=== PATIENT | female | born 1945 | race Caucasian/White ===

== ENCOUNTER → 2018-07-25 | Day surgery (SDC) | payer OTHER ==
[2018-07-12 09:45] LABS: ABSOLUTE BASOPHILS 0.1 thou/uL (0.0-0.2); ABSOLUTE EOSINOPHILS 0.1 thou/uL (0.0-0.7); ABSOLUTE LYMPHOCYTES 1.9 thou/uL (0.8-5.3); ABSOLUTE MONOCYTES 0.5 thou/uL (0.0-1.2); ABSOLUTE NEUTROPHILS 3.5 thou/uL (1.6-8.1); HEMATOCRIT 39.5 % (37.0-47.0); HEMOGLOBIN 13.5 gm/dL (12.0-15.0); LYMPHOCYTES 30.8 %; MCH 28.9 pg (26.0-34.0); MCHC 34.1 g/dL (28.0-37.0); MCV 84.6 fL (80.0-100.0); MONOCYTES 7.5 %; MPV 7.4 fl. (7.2-11.1); NUCLEATED RBCS 0 /100WBC; PLATELET COUNT* 389 thou/uL (150-400); POLYS 57.7 %; RBC 4.67 mil/uL (4.20-5.00); RDW-CV 13.9 % (10.5-14.5)
[2018-07-12 10:12] LABS: CALCIUM 8.5 mg/dL (8.5-10.1); CREATININE 0.8 mg/dL (0.6-1.3); POTASSIUM 4.5 mmol/L (3.5-5.1)
--- NOTE | 2018-07-12 17:24 | EKG ---
[place] [address] ELECTROCARDIOGRAM REPORT Name: ROSALINDA VINES Room: [facility].#: [id number] Admission: Attend Phys: Castro England Discharge: Date of : 45 Report #: [id number] THIS REPORT FOR: //name// [facility] Test Date: 2018-07-12 Test Time: 09:30:37 Pat Name: ROSALINDA VINES Department: Room: Gender: F Group Home Manager: : 1945 Requested By: Maxim Mccord Order Number: [id number] Reading MD: Brent Landa Measurements Intervals [place] Rate: 97 P: 77 [place]: 194 QRS: 37 QRSD: 86 T: 30 QT: 360 QTc: 458 Interpretive Statements Sinus rhythm Abnormal R-wave progression, early transition Inferior infarct, old possible Electronically Signed On 07-12-2018 17:24:05 CDT by Brent Landa [email or web address] <ELECTRONICALLY SIGNED> By: Brent Landa MD, [facility] 07/12/18 1724 0930 0930 Brent Landa MD, FACC /EPI
[~2018-07-25] MED LIST: ADVAIR 250-501 EACH INH; ALBUTEROL SULFAT2 MG; ALBUTEROL SULFAT4 MG PO; ALPRAZOLAM 0.50.5 M1 PO; AMBIEN 10 MG TA10 MG; AMBIEN 10 MG TA10 MG PO; ASPIRIN EC81 M1 PO; BIAXIN 250MG T250 M1 PO; BIAXIN 250MG T250 MG PO; BUSPIRONE HCL15 MG PO; CELEBREX 200 M200 M1 PO; CELEBREX 200 M200 MG PO; CIPRO250 M1 PO; COLACE100 MG PO; HYDROCODON-ACE1 EAC7 PO; HYLAND PO; IRBESARTAN150 MG PO; NEXIUM40 MG PO; PAXIL10 MG PO; PRINIVIL10 MG PO; PROAIR HFA8.5 GM INH; SINGULAIR 10 MG10 M1 PO; SPIRIVA INH; SYMBICORT160 MCG/4. INH; VITAMIN D 5050000 I1 PO
--- NOTE | 2018-09-01 16:32 | OP ---
[facility] [address] [place] [address] OPERATIVE REPORT Name: ROSALINDA VINES Room: [facility] M..#: [id number] Admission: 07/25/18 Attend Phys: Castro England Discharge: Date of : 45 Report #: [id number] THIS REPORT FOR: //name// CC: Christy Mccord SURGEON: Maxim Mccord M.D. PREOPERATIVE DIAGNOSIS: Stress urinary incontinence. POSTOPERATIVE DIAGNOSIS: Stress urinary incontinence. PROCEDURE: Solyx sling and cystoscopy. COMPLICATIONS: No complication. INDICATIONS: This is a 73-year-old female with a history of leakage with coughing, sneezing, lifting and laughing. She has gotten okayed by her lung doctor to proceed with surgery. She understands the risks of bleeding, infection and need for another procedure. She understands she still may have recurrent incontinence and may have sphincter insufficiency and/or need medications. She understands the risks of bleeding, infection, erosion or rejection and wishes to proceed. DESCRIPTION OF PROCEDURE: Informed consent was obtained. The patient was sterilely prepped and draped in dorsal lithotomy position and given preoperative antibiotics, very carefully sterilely prepped and draped. Marcaine was first infiltrated in the suburethral area. She did have some scarring. It looked like probably an old episiotomy, mainly on her right side with the scarring. I was able to get though good planes established and periurethral pockets were made up to the level of the obturator muscle membrane. Solyx sling device then was soaked in antibiotic irrigation and then it was placed in the proper position to the level of the mid urethra on the ansley of the trocar. The ends were deployed into the muscle. I gave some gentle traction. They were well seated and did not pull back at all. Copious antibiotic irrigation was then used in the wound and then the incision was closed using a 2-0 Vicryl. Hemostasis was excellent. Cystoscopy was then carried out, showing no evidence of inadvertent entry into the bladder and the mid urethral area was in the perfect neutral position. The patient tolerated this well and was taken to the recovery room in good condition. She will have a voiding trial in the recovery room. <ELECTRONICALLY SIGNED> By: Maxim Mccord MD 09/01/18 1632 0829 [email or web address] Mccord MD /nt
== END | disposition home or self-care (01) ==
LOC: M.SUR 05:54
PROVIDERS: Urology
DX: N39.3 Stress incontinence (female) (male) (principal); I10 Essential (primary) hypertension; F17.200 Nicotine dependence, unspecified, uncomplicated; K21.9 Gastro-esophageal reflux disease without esophagitis; F32.9 Major depressive disorder, single episode, unspecified; E66.9 Obesity, unspecified; J45.909 Unspecified asthma, uncomplicated; J44.9 Chronic obstructive pulmonary disease, unspecified; Z88.0 Allergy status to penicillin; Z88.1 Allergy status to other antibiotic agents; Z79.899 Other long term (current) drug therapy; Z90.710 Acquired absence of both cervix and uterus; Z98.890 Other specified postprocedural states; Z96.643 Presence of artificial hip joint, bilateral

== ENCOUNTER → 2019-05-29 | Outpatient (CLI) | payer OTHER ==
[~2019-05-29] MED LIST changes: +ACETAMINOPHEN-1 EAC1 PO; +KEFLEX500 M1 PO; +RANITIDINE 150150 M1 PO
== END ==
LOC: M.ULTRA 12:43
DX: I82.492 Acute embolism and thrombosis of other specified deep vein of left lower extremity (principal); M79.601 Pain in right arm

== ENCOUNTER 2021-10-29 01:12 | Inpatient (IN) | payer OTHER ==
[~2021-10-29] VITALS: Ht 167.6 cm; Wt 79.8 kg
--- NOTE | ~2021-10-29 | EMS ---
[address] [place] [address] EMS Patient Care Report Name: ROSALINDA VINES Room: [place] [address] ADM IN [facility].#: [id number] Admission: 10/29/21 Attend Phys: Len Currie MD Discharge: Date of : 45 Report #: [id number] THIS REPORT FOR: //name// Report Transmitted: 10/29/2021 07:38 EMS Care Summary [place] [facility] Incident 22-0022 @ 10/29/2021 00:30 Incident Location [address] [place] [address] Patient ROSALINDA VINES Female, 76 Years 1945 Patient Address [address] [place] [address] Patient History Chronic Obstructive Pulmonary Disease (COPD), Patient Allergies Amoxicillin, Chief Complaint Short of breath Disposition Transported No Lights/[place] Dispatch Reason Breathing Problem Transported To [facility] was dispatched for a 76 year old female with difficulty breathing. Upon our arrival, patient was sitting in a kitchen chair. Pt was wearing home oxygen with nasal canula at 2LPM. Pt was obviously having difficulty breathing and could hear wheezing and crackles, as we walked in the door. Pt said she has sounded like this for 2 days and tonight had gotten worse. He said that the patient has home breathing treatments but [address] [place] [address] EMS Patient Care Report Name: ROSALINDA VINES Room: [place] [address] ADM [place] ..#: [id number] Admission: 10/29/21 Attend Phys: Len Currie MD Discharge: Date of : 45 Report #: [id number] refuses to take them. states that she has COPD and other conditions that he can not remember. He also did not have a list of meds, nor did he know what her meds were or where they were at. Pt was A&O x4. Pt stated that she smokes approx a pack and a half of cigarettes a day. Pt sats were 80% on 2LPM NC. She was placed on a non rebreather 15LPM, sats went up to 94-95%. Patient was positioned on the stretcher and placed into the ambulance. Vitals were obtained at the house and monitored in the ambulance. Pt denied any chest pain or had any other complaints. Pt remained sitting upright on the stretcher and was monitored during transport. Initial Vitals @00:47P: 151,R: 24,BP: 99/57,SpO2: 95, @00:39P: 114,R: 26,BP: 110/68,GCS: 15,Glucose: 95,SpO2: 80,Revised Trauma: 12, Impression Chronic Obstructive Pulmonary Disease (COPD) Timeline 00:30,Call Received 00:30,Dispatched 00:31,En Route 00:39,Initial Responder On Scene 00:39,On Scene 00:39,At Patient 00:39,BP: 110/68 M,PULSE: 114,RR: 26 R,SPO2: 80 Ox,ETCO2: ,B,PAIN: ,GCS: 15, 00:47,BP: 99/57 M,PULSE: 151,RR: 24 R,SPO2: 95 Ox,ETCO2: ,BG: ,PAIN: ,GCS: , 00:50,Depart Scene 01:10,At Destination 01:10,Transfer Patient 01:36,Call Closed 01:36,In District Disclaimer v1.1 Copyright 2021 [employer] This EMS Care Summary contains data elements from the applicable legal record (which may be displayed differently). It is designed to provide pertinent information for the following purposes: continuity of care, clinical quality, and state data reporting. The complete legal record is available to ED staff and administrators of the receiving hospital in [email or web address]'s Patient Tracker. All data is provided "as is."
--- NOTE | ~2021-10-29 | EMS ---
[address] [address] EMS Patient Care Report Name: ROSALINDA VINES Room: [place] [address] ADM [place] ..#: [id number] Admission: 10/29/21 Attend Phys: Len Currie MD Discharge: Date of : 45 Report #: [id number] THIS REPORT FOR: //name// Report Transmitted: 10/30/2021 10:22 EMS Care Summary [place] [facility] Incident 22-0022 @ 10/29/2021 00:30 Incident Location [address] [place] [address] Patient ROSALINDA VINES Female, 76 Years 1945 Patient Address [address] [place] [address] Patient History Chronic Obstructive Pulmonary Disease (COPD), Patient Allergies Amoxicillin, Chief Complaint Short of breath Disposition Transported No Lights/[place] Dispatch Reason Breathing Problem Transported To [facility] was dispatched for a 76 year old female with difficulty breathing. Upon our arrival, patient was sitting in a kitchen chair. Pt was wearing home oxygen with nasal canula at 2LPM. Pt was obviously having difficulty breathing and could hear wheezing and crackles, as we walked in the door. Pt said she has sounded like this for 2 days and tonight had gotten worse. He said that the patient has home breathing treatments [place] [address] [place] [address] EMS Patient Care Report Name: ROSALINDA VINES Room: [place] [address] ADM IN [facility].#: [id number] Admission: 10/29/21 Attend Phys: Len Currie MD Discharge: Date of : 45 Report #: [id number] refuses to take them. states that she has COPD and other conditions that he can not remember. He also did not have a list of meds, nor did he know what her meds were or where they were at. Pt was A&O x4. Pt stated that she smokes approx a pack and a half of cigarettes a day. Pt sats were 80% on 2LPM NC. She was placed on a non rebreather 15LPM, sats went up to 94-95%. Patient was positioned on the stretcher and placed into the ambulance. Vitals were obtained at the house and monitored in the ambulance. Pt denied any chest pain or had any other complaints. Pt remained sitting upright on the stretcher and was monitored during transport. Initial Vitals @00:47P: 151,R: 24,BP: 99/57,SpO2: 95, @00:39P: 114,R: 26,BP: 110/68,GCS: 15,Glucose: 95,SpO2: 80,Revised Trauma: 12, Impression Chronic Obstructive Pulmonary Disease (COPD) Timeline 00:30,Call Received 00:30,Dispatched 00:31,En Route 00:39,Initial Responder On Scene 00:39,On Scene 00:39,At Patient 00:39,BP: 110/68 M,PULSE: 114,RR: 26 R,SPO2: 80 Ox,ETCO2: ,B,PAIN: ,GCS: 15, 00:47,BP: 99/57 M,PULSE: 151,RR: 24 R,SPO2: 95 Ox,ETCO2: ,BG: ,PAIN: ,GCS: , 00:50,Depart Scene 01:10,At Destination 01:10,Transfer Patient 01:36,Call Closed 01:36,In District Disclaimer v1.1 Copyright 2021 [employer] This EMS Care Summary contains data elements from the applicable legal record (which may be displayed differently). It is designed to provide pertinent information for the following purposes: continuity of care, clinical quality, and state data reporting. The complete legal record is available to ED staff and administrators of the receiving hospital in ES's Patient Tracker. All data is provided "as is."
[2021-10-29 01:46] LABS: HEMATOCRIT 37.1 % (37.0-47.0); HEMOGLOBIN 12.6 gm/dL (12.0-15.0); MCH 26.7 pg (26.0-34.0); MCHC 34.1 g/dL (28.0-37.0); MCV 78.4 fL (80.0-100.0); NUCLEATED RBCS 0 /100WBC; PLATELET COUNT* 358 thou/uL (150-400); RBC 4.73 mil/uL (4.20-5.00); RDW-CV 15.8 % (10.5-14.5); WBC 23.2 thou/uL (4.0-11.0)
[2021-10-29 01:47] LABS: BE -6.6 mmol/L (-2 to +3); PCO2 46.8 mmHg (35.0-45.0); PO2 82.9 mmHg (75.0-100.0)
[2021-10-29 01:49] LABS: pH 7.258 (7.340-7.450)
[2021-10-29 01:52] LABS: CALCIUM 8.2 mg/dL (8.5-10.1); CREATININE 1.8 mg/dL (0.6-1.3); POTASSIUM 3.9 mmol/L (3.5-5.1)
[2021-10-29 02:02] LABS: ALBUMIN 2.7 g/dL (3.4-5.0); MAGNESIUM 1.5 mg/dL (1.8-2.4); TOTAL BILIRUBIN 1.4 mg/dL (<0.1-1.0); TOTAL PROTEIN 6.9 g/dL (6.4-8.2)
[2021-10-29 02:36] LABS: INFLUENZA A ANTIGEN Negative (Negative); INFLUENZA B ANTIGEN Negative (Negative)
[2021-10-29 03:37] LABS: ABSOLUTE LYMPHOCYTES 0.7 thou/uL (0.8-5.3); ABSOLUTE MONOCYTES 0.5 thou/uL (0.0-1.2); TOXIC GRANULATION 2+
[2021-10-29 03:38] LABS: PLATELET ESTIMATE ADEQUATE
[2021-10-29 06:15] VITALS: BP 155/55
[2021-10-29 09:15] LABS: CREATININE 1.8 mg/dL (0.6-1.3); POTASSIUM 3.6 mmol/L (3.5-5.1)
[2021-10-29 10:15] VITALS: BP 120/64
[2021-10-29 10:36] LABS: URINE BILIRUBIN NEGATIVE (Negative); URINE BLOOD 3+ (Negative); URINE CLARITY CLEAR; URINE COLOR DARK YELLOW; URINE GLUCOSE-RANDOM NEGATIVE (Negative); URINE KETONES NEGATIVE (Negative); URINE LEUKOCYTES-REFLEX TRACE (Negative); URINE NITRITE-REFLEX NEGATIVE (Negative); URINE PROTEIN NEGATIVE (Negative); URINE UROBILINOGEN 0.2 E.U./dl (0.2-1.0)
[2021-10-29 10:45] LABS: BE -3.3 mmol/L (-2 to +3); PCO2 40.7 mmHg (35.0-45.0); PO2 111.8 mmHg (75.0-100.0); pH 7.351 (7.340-7.450)
[2021-10-29 10:49] LABS: BACTERIA-REFLEX 1-9 Few /HPF (None Seen); CASTS None Seen /LPF (None Seen); CRYSTALS None Seen /LPF (None Seen); SQUAMOUS 4-10 Moderate /LPF (0-3); URINE WBC-REFLEX 0-5 Rare /HPF (0-5)
--- NOTE | 2021-10-29 12:37 | 2DMMODE ---
[place] [address] 2 D/M-MODE ECHOCARDIOGRAM Name: ROSALINDA VINES Room: [address] IN [facility].#: [id number] Admission: 10/29/21 Attend Phys: Len Currie, Discharge: Date of : 45 Date of Service: 10/29/21 1237 Report #: [id number] THIS REPORT FOR: cc: Christy Wood Ahmad W. DO Liston, Michael J. MD [facility] ~ APPROVED REPORT Study performed: 10/29/2021 10:15:33 EXAM: Comprehensive 2D, Doppler, and color-flow Echocardiogram Patient Location: Bedside BSA: 1.89 HR: 137 bpm BP: 155/55 mmHg Other Information Study Quality: Adequate Technically limited study due to uncooperative patient, inability to position patient. Indications Atrial Fibrillation 2D Dimensions IVSd: 13.08 (7-11mm) LVOT Diam: 19.39 (18-24mm) LVDd: 43.06 mm PWd: 12.33 (7-11mm) Ascending Ao: 28.16 (22-36mm) LVDs: 27.55 (25-40mm) Aortic Root: 28.03 mm Volumes Left Atrial Volume (Systole) LA ESV Index: 23.30 mL/m2 Aortic Valve AoV Peak Chris.: 1.05 m/s AO Peak Gr.: 4.38 mmHg LVOT Max P.56 mmHg AO Mean Gr.: 2.49 mmHg LVOT Mean P.44 mmHg LVOT Max V: 0.80 m/s AO V2 VTI: 13.69 cm LVOT Mean V: 0.56 m/s JIMMY (VTI): 2.97 cm2 LVOT V1 VTI: 13.77 [place] [address] 2 D/M-MODE ECHOCARDIOGRAM Name: ROSALINDA VINES Room: [address] IN [facility].#: [id number] Admission: 10/29/21 Attend Phys: Len Currie, Discharge: Date of : 45 Date of Service: 10/29/21 1237 Report #: [id number] Mitral Valve E/A Ratio: 5.11 MV Decel. Time: 165.76 ms MV E Max Chris.: 1.09 m/s MV PHT: 48.07 ms MVA (PHT): 4.58 cm2 TDI E/Lateral E': 7.79 E/Medial E': 9.08 Medial E' Chris.: 0.12 m/s Lateral E' Chris.: 0.14 m/s Pulmonary Valve PV Peak Chris.: 0.74 m/s PV Peak Gr.: 2.22 mmHg Tricuspid Valve RAP Estimate: 15.00 mmHg TR Peak Gr.: 22.07 mmHg RVSP: 37.07 mmHg PA Pressure: 37.07 mmHg Left Ventricle The left ventricle is normal size. There are no obvious wall motion abnormalities. Mild concentric left ventricular hypertrophy. Left ventricular systolic function is grossly normal. LVEF is 55-60%. This study is not technically sufficient to allow evaluation of the LV diastolic function due to atrial fibrillation. Right Ventricle Right ventricle is mildly dilated. The right ventricular systolic function is normal. Atria The left atrium size is normal. The right atrium size is normal. Aortic Valve The aortic valve is normal in structure. No aortic regurgitation is present. There is no aortic valvular stenosis. Mitral Valve The mitral valve is normal in structure. There is no mitral valve regurgitation noted. No evidence of mitral valve stenosis. Tricuspid Valve The tricuspid valve is normal in structure. Mild tricuspid regurgitation. No apparent [place] [address] 2 D/M-MODE ECHOCARDIOGRAM Name: ROSALINDA VINES Room: [address] IN [facility]#: [id number] Admission: 10/29/21 Attend Phys: Len Currie, Discharge: Date of : 45 Date of Service: 10/29/21 1237 Report #: [id number] Pulmonic Valve Pulmonic valve is not well visualized. Trace pulmonic regurgitation. Great Vessels The aortic root is normal in size. IVC is dilated and collapses >50% with inspiration. Pericardium There is no pericardial effusion. <Conclusion> Technically limited two-dimensional echocardiogram. The left ventricle is normal size. Mild concentric left ventricular hypertrophy. Left ventricular systolic function is grossly normal. LVEF is 55-60%. There are no obvious wall motion abnormalities. Right ventricle is mildly dilated. Mild tricuspid regurgitation. No apparent pulmonary hypertension. IVC is dilated and collapses >50% with inspiration. <ELECTRONICALLY SIGNED> By: Demetrio Chase MD, FACC 10/29/21 1237 1237 1237 Demetrio Chase MD, FACC /INF
[2021-10-29 14:03] VITALS: BP 121/71
[2021-10-29 16:31] LABS: CALCIUM 7.7 mg/dL (8.5-10.1); CREATININE 1.9 mg/dL (0.6-1.3); POTASSIUM 3.9 mmol/L (3.5-5.1)
[2021-10-29 18:06] VITALS: BP 133/71
[2021-10-29 21:19] VITALS: BP 116/60
[2021-10-30] VITALS (8 sets, daily range): BP systolic 102–124; BP diastolic 53–71
[2021-10-30 08:05] LABS: ABSOLUTE EOSINOPHILS 0.3 thou/uL (0.0-0.7); ABSOLUTE LYMPHOCYTES 0.3 thou/uL (0.8-5.3); ABSOLUTE MONOCYTES 0.6 thou/uL (0.0-1.2); ABSOLUTE NEUTROPHILS 24.4 thou/uL (1.6-8.1); BASOPHILS 0.1 %; EOSINOPHILS 1.1 %; HEMATOCRIT 32.8 % (37.0-47.0); HEMOGLOBIN 10.8 gm/dL (12.0-15.0); LYMPHOCYTES 1.3 %; MCH 26.5 pg (26.0-34.0); MCHC 32.9 g/dL (28.0-37.0); MCV 80.6 fL (80.0-100.0); MONOCYTES 2.3 %; MPV 7.8 fl. (7.2-11.1); NUCLEATED RBCS 0 /100WBC; PLATELET COUNT* 319 thou/uL (150-400); POLYS 95.2 %; RBC 4.07 mil/uL (4.20-5.00); RDW-CV 15.9 % (10.5-14.5); WBC 25.7 thou/uL (4.0-11.0)
[2021-10-30 08:20] LABS: ALBUMIN 2.2 g/dL (3.4-5.0); CALCIUM 7.5 mg/dL (8.5-10.1); MAGNESIUM 2.8 mg/dL (1.8-2.4); TOTAL BILIRUBIN 0.8 mg/dL (<0.1-1.0); TOTAL PROTEIN 6.6 g/dL (6.4-8.2)
[2021-10-30 08:49] LABS: BE -4.9 mmol/L (-2 to +3); PCO2 40.6 mmHg (35.0-45.0); PO2 108.4 mmHg (75.0-100.0); pH 7.327 (7.340-7.450)
[2021-10-31 04:00] VITALS: BP 126/65
[2021-10-31 05:39] LABS: ABSOLUTE EOSINOPHILS 0.1 thou/uL (0.0-0.7); ABSOLUTE LYMPHOCYTES 0.2 thou/uL (0.8-5.3); ABSOLUTE MONOCYTES 0.7 thou/uL (0.0-1.2); BASOPHILS 0.1 %; EOSINOPHILS 0.4 %; HEMOGLOBIN 10.8 gm/dL (12.0-15.0); MCH 26.6 pg (26.0-34.0); MCHC 32.6 g/dL (28.0-37.0); MCV 81.5 fL (80.0-100.0); MONOCYTES 3.4 %; NUCLEATED RBCS 0 /100WBC; PLATELET COUNT* 282 thou/uL (150-400); POLYS 95.1 %; RBC 4.05 mil/uL (4.20-5.00); RDW-CV 16.2 % (10.5-14.5); WBC 22.1 thou/uL (4.0-11.0)
[2021-10-31 06:00] LABS: CALCIUM 7.9 mg/dL (8.5-10.1); CREATININE 1.7 mg/dL (0.6-1.3); MAGNESIUM 3.2 mg/dL (1.8-2.4); POTASSIUM 3.6 mmol/L (3.5-5.1)
[2021-10-31 10:10] VITALS: BP 122/66
--- NOTE | 2021-10-31 10:54 | EKG ---
[place] [address] ELECTROCARDIOGRAM REPORT Name: ROSALINDA VINES Room: [address] ADM IN .R.#: [id number] Admission: 10/29/21 Attend Phys: Len Currie, Discharge: Date of : 45 Date of Service: 10/29/21 0121 Report #: [id number] THIS REPORT FOR: //name// [facility] ED Test Date: 2021-10-29 Test Time: 01:21:59 Pat Name: ROSALINDA VINES Department: Room: [facility] Gender: F Frame Feeder: : 1945 Requested By: Len Currie Order Number: [id number] MD: Mario Keita Measurements Intervals [place] Rate: 173 P: [place]: QRS: 59 QRSD: 89 T: 33 QT: 266 QTc: 452 Interpretive Statements Atrial fibrillation with rapid V-rate wandering baseline Low voltage, extremity and precordial leads ST depression, probably rate related Compared to ECG 07/12/2018 09:30:37 Low QRS voltage now present ST (T wave) deviation now present Sinus rhythm no longer present Electronically Signed On 10-31-2021 10:53:58 DETONATOR ASSEMBLER by Mario Keita [email or web address] <ELECTRONICALLY SIGNED> By: Mario Keita MD, [facility] 10/31/21 1053 0 012 Mario Keita MD, [facility] /EPI
--- NOTE | 2021-10-31 11:00 | EKG ---
[place] [address] ELECTROCARDIOGRAM REPORT Name: ROSALINDA VINES Room: [address] ADM IN M.R.#: [id number] Admission: 10/29/21 Attend Phys: Len Currie, Discharge: Date of : 45 Date of Service: 10/31/21 1001 Report #: [id number] THIS REPORT FOR: //name// [facility] Test Date: 2021-10-31 Test Time: 10:01:02 Pat Name: ROSALINDA VINES Department: Room: [address] Gender: F Contractor Field Hauling: SANTI : 1945 Requested By: Trudi Foster Order Number: [id number] Chace MD: Mario Keita Measurements Intervals [place] Rate: 111 P: MD: QRS: 45 QRSD: 79 T: 31 QT: 316 QTc: 430 Interpretive Statements Atrial fibrillation Low voltage, precordial leads Abnormal R-wave progression, early transition Compared to ECG 10/29/2021 01:21:59 rate has slowed Electronically Signed On 10-31-2021 11:00:16 MANAGER PMO by Mario Keita [email or web address] <ELECTRONICALLY SIGNED> By: Mario Keita MD, FAC 10/31/21 1100 1001 1001 Mario Keita MD, [facility] /EPI
[2021-10-31 11:13] VITALS: BP 135/51
[2021-10-31 17:10] VITALS: BP 128/88
[2021-10-31 17:15] LABS: BE -1.9 mmol/L (-2 to +3); PCO2 49.4 mmHg (35.0-45.0); PO2 73.3 mmHg (75.0-100.0); pH 7.315 (7.340-7.450)
[2021-10-31 20:00] VITALS: BP 149/63
[2021-11-01 00:24] VITALS: BP 129/65
[2021-11-01 04:00] VITALS: BP 133/63
[2021-11-01 05:51] LABS: HEMATOCRIT 34.2 % (37.0-47.0); HEMOGLOBIN 11.1 gm/dL (12.0-15.0); MCH 26.5 pg (26.0-34.0); MCHC 32.6 g/dL (28.0-37.0); MCV 81.1 fL (80.0-100.0); MPV 7.9 fl. (7.2-11.1); RBC 4.21 mil/uL (4.20-5.00); RDW-CV 16.8 % (10.5-14.5); WBC 20.9 thou/uL (4.0-11.0)
[2021-11-01 06:21] LABS: CALCIUM 7.9 mg/dL (8.5-10.1); CREATININE 1.4 mg/dL (0.6-1.3); MAGNESIUM 3.7 mg/dL (1.8-2.4); POTASSIUM 3.6 mmol/L (3.5-5.1); TOTAL BILIRUBIN 0.4 mg/dL (<0.1-1.0); TOTAL PROTEIN 6.7 g/dL (6.4-8.2)
[2021-11-01 08:30] VITALS: BP 140/62
[2021-11-01 11:57] VITALS: BP 138/69
[2021-11-01 17:08] VITALS: BP 133/66
[2021-11-01 20:00] VITALS: BP 142/64
[2021-11-02] VITALS: BP 127/58
[2021-11-02 04:00] VITALS: BP 122/64
[2021-11-02 04:22] LABS: HEMATOCRIT 34.6 % (37.0-47.0); HEMOGLOBIN 11.2 gm/dL (12.0-15.0); MCH 26.3 pg (26.0-34.0); MCHC 32.4 g/dL (28.0-37.0); MPV 7.9 fl. (7.2-11.1); RBC 4.27 mil/uL (4.20-5.00); RDW-CV 16.8 % (10.5-14.5); WBC 14.2 thou/uL (4.0-11.0)
[2021-11-02 04:46] LABS: ALBUMIN 1.9 g/dL (3.4-5.0); CALCIUM 7.9 mg/dL (8.5-10.1); CREATININE 1.3 mg/dL (0.6-1.3); MAGNESIUM 3.5 mg/dL (1.8-2.4); POTASSIUM 3.9 mmol/L (3.5-5.1); TOTAL BILIRUBIN 0.4 mg/dL (<0.1-1.0); TOTAL PROTEIN 6.3 g/dL (6.4-8.2)
[2021-11-02 08:30] VITALS: BP 131/73
[2021-11-02 11:49] VITALS: BP 166/98
[2021-11-02 16:00] VITALS: BP 154/73
[2021-11-02 20:00] VITALS: BP 167/66
[2021-11-02 23:07] LABS: MYCOPLASMA PNEUMONIA IgG 352 U/mL (0-99); MYCOPLASMA PNEUMONIA IgM <770 U/mL (0-769)
[2021-11-03] VITALS (8 sets, daily range): BP systolic 123–162; BP diastolic 52–88
[2021-11-04 01:58] VITALS: BP 149/51
[2021-11-04 05:16] LABS: ALBUMIN 2.2 g/dL (3.4-5.0); CALCIUM 8.2 mg/dL (8.5-10.1); CREATININE 1.1 mg/dL (0.6-1.3); MAGNESIUM 2.9 mg/dL (1.8-2.4); TOTAL BILIRUBIN 0.6 mg/dL (<0.1-1.0); TOTAL PROTEIN 5.9 g/dL (6.4-8.2)
[2021-11-04 06:28] LABS: HEMATOCRIT 34.4 % (37.0-47.0); HEMOGLOBIN 11.1 gm/dL (12.0-15.0); MCH 26.3 pg (26.0-34.0); MCHC 32.4 g/dL (28.0-37.0); MCV 81.1 fL (80.0-100.0); MPV 7.6 fl. (7.2-11.1); NUCLEATED RBCS 0 /100WBC; PLATELET COUNT* 273 thou/uL (150-400); RBC 4.24 mil/uL (4.20-5.00); RDW-CV 16.5 % (10.5-14.5); WBC 19.9 thou/uL (4.0-11.0)
[2021-11-04 06:33] VITALS: BP 162/66
[2021-11-04 08:08] LABS: ABSOLUTE LYMPHOCYTES 0.8 thou/uL (0.8-5.3); ABSOLUTE MONOCYTES 0.4 thou/uL (0.0-1.2); ABSOLUTE NEUTROPHILS 18.7 thou/uL (1.6-8.1); MYELOCYTES 3 %; PLATELET ESTIMATE ADEQUATE
[2021-11-04 08:47] VITALS: BP 155/62
[2021-11-04 12:14] VITALS: BP 144/63
[2021-11-04 13:34] LABS: BE 1.3 mmol/L (-2 to +3); PCO2 44.8 mmHg (35.0-45.0); PO2 75.4 mmHg (75.0-100.0); pH 7.392 (7.340-7.450)
[2021-11-04 17:34] VITALS: BP 142/66
[2021-11-04 20:00] VITALS: BP 154/63
[2021-11-05] VITALS (8 sets, daily range): BP systolic 108–159; BP diastolic 52–71
[2021-11-05] MEDS ORDERED: CARDIZEM CD240 M1 PO (11:53)
[2021-11-05] MEDS ORDERED: PREDNISONE 10 M10 MG PO (11:53)
[2021-11-05] MEDS ORDERED: MUCINEX600 MG PO (11:53)
[2021-11-05] MEDS ORDERED: PACERONE 200 M200 M1 PO (11:53)
[2021-11-05] MEDS ORDERED: APAP W/CODEINE1 TA2 PO (11:53)
[2021-11-05] MEDS ORDERED: ELIQUIS5 MG PO (17:07)
[2021-11-05] MEDS ORDERED: LEVOFLOXACIN750 MG PO (17:25)
--- NOTE | 2021-11-09 18:57 | CON ---
[address] [address] CONSULTATION Name: ROSALINDA VINES Room: [address] IN M.R.#: [id number] Admission: 10/29/21 Attend Phys: Len Currie MD Discharge: 11/05/21 Date of : 45 Report #: [id number] THIS REPORT FOR: cc: Christy Wood Ahmad W. DO Pervez, Adeel MD ~ DATE OF CONSULTATION: 10/29/2021 Consult has been requested by Dr. Schwartz. INDICATION FOR CONSULTATION: Acute hypoxemic respiratory failure/pneumonia. HISTORY OF PRESENT ILLNESS: This is a 76 years old female, past medical history includes a history of COPD. The patient is not on supplemental oxygen at home. It is not known to me as to whether she has been vaccinated for COVID-19. Her baseline creatinine is normal at 0.8. The patient has had chronic hyponatremia. There is previous sodium that is recorded up to 108, not known to me as to whether this has been previously evaluated. The patient has now presented with respiratory distress. She is on a BiPAP with 90% FiO2 during my evaluation earlier today, and she was not able to provide any meaningful history. She is on 90% FiO2 with a BiPAP in place; however, O2 saturation had come up to the high 90s. She appeared to be comfortable on BiPAP at that time, but per the records, she has had significant atrial fibrillation with RVR earlier and has been on amiodarone drip in addition to receiving digoxin and diltiazem. The patient is not able to provide further history or review of systems. PAST MEDICAL HISTORY: COPD, bronchial asthma is also mentioned in the chart, however, history is more consistent with COPD, previous history of hyponatremia, sodium is up to 108, creatinine previously normal at 0.8, hip surgery, foot surgery, finger surgery, back surgery, hysterectomy, bunionectomy, hypertension, bilateral hip replacement. SOCIAL HISTORY: Active smoker, unable to quantify exactly. Previous use of alcohol, unable to quantify. FAMILY HISTORY: No pertinent family history. ALLERGIES: SHE REPORTS ALLERGY TO PENICILLINS; however, she tolerates cephalosporins as well as carbapenem-type antibiotics without problems. ALSO ALLERGY TO CERTAIN MOLDS AND POLLEN. PHYSICAL EXAMINATION: GENERAL: She was drowsy, fully arousable, BiPAP at 90% FiO2[place] [address] CONSULTATION Name: ROSALINDA VINES Room: [address] IN [facility]#: [id number] Admission: 10/29/21 Attend Phys: Len Currie MD Discharge: 11/05/21 Date of : 45 Report #: [id number] record. These are reviewed. NECK: Does not show raised JVP. CHEST: Breath sounds are bilaterally equal. No added sounds. HEART: Irregular. No murmur. ABDOMEN: Soft and nontender. EXTREMITIES: Lower extremities, no edema, no calf tenderness. NEUROLOGIC: Nonfocal. LABORATORY DATA: Chest x-ray from earlier today is reviewed and shows florid pulmonary infiltrates, the entire right upper lobe is consolidated, some infiltrates extend into the right middle lobe and lower lobe. Lab work in [facility] reviewed. She is in acute renal failure. ASSESSMENT AND PLAN: 1. Acute hypoxemic respiratory failure. I feel that it is reasonable to follow her on a BiPAP at this time; however, if she fails to improve, then she may need to be intubated. Recommend obtaining a PICC line. 2. Severe bacterial pneumonia/pulmonary infiltrates. There are florid pulmonary infiltrates on the patient's chest x-ray, this is consistent with severe bacterial pneumonia. Findings are not consistent with COVID-19 or it will be entirely possible that she has COVID as well on top of having bacterial pneumonia. She is high risk for vancomycin nephrotoxicity. Therefore, I discontinued vancomycin and started linezolid instead. She is on Paxil as well as BuSpar at home long-term. I discontinued Paxil for the duration that she will be on linezolid. We will continue with meropenem. I increased the dose to 1 g q. 12 hours. Considering significant hyponatremia, I considered as to whether I should give her atypical coverage as well at this time. I, in fact, was going to order Levaquin as well; however, it was noted that she is on amiodarone, which will interact with Levaquin. I decided to hold off tonight. If she is not better, then I suggest reviewing this with the ID service. More cultures and serologies are ordered. 3. Chronic obstructive pulmonary disease exacerbation. Continue Brovana. Continue Solu-Medrol. If her respiratory status improves, then we will switch to Xopenex p.r.n. 4. Acute renal failure/hyponatremia. Note that she has had significant hyponatremia in the past as well. It is not known to me as to whether this has been investigated. I therefore will go ahead and start her on low rate IV fluids. I started the normal saline at 50 an hour. If her creatinine remains stable or decreases, then we can give her Lasix at the same time as continuing with IV fluids. However, if the creatinine rises, then in that case, rather than giving her Lasix, we will consider endotracheal intubation to maintain her respiratory status. Her hyponatremia is chronic, not known to me as to whether this has previously been investigated. Note that the patient takes an ARB at home, which can cause hyponatremia. Recommend [place] [address] CONSULTATION Name: ROSALINDA VINES Room: [address] IN .R.#: [id number] Admission: 10/29/21 Attend Phys: Len Currie MD Discharge: 11/05/21 Date of : 45 Report #: [id number] well. 5. Atrial fibrillation with rapid ventricular response. Echocardiogram noted shows normal left ventricular ejection fraction and pulmonary artery systolic of 37. I would defer management of atrial fibrillation to the Cardiology Service. She is in acute renal failure. Therefore, I recommend discontinuing Xarelto. If the patient is able to take oral anticoagulation, then I recommend that we give her Eliquis instead, may need parenteral anticoagulation in case she is unable to take orally. 6. Hypomagnesemia. Magnesium was 1.5 this morning. She did receive 2 g of magnesium. I do not have a repeat level available at this time. Leaving the magnesium level too low will be a greater risk than high magnesium level. Therefore, I went ahead and ordered 2 g of magnesium sulfate again now. Check morning labs. She may need some potassium as well. 7. Deep vein thrombosis prophylaxis. See discussion regarding choice of agent for anticoagulation as above. 8. Gastrointestinal prophylaxis. She takes a PPI at home. She is on Protonix as well as Pepcid now. Unless there is an additional indication for Pepcid, I would recommend discontinuing Pepcid. Continue Protonix. If the patient is unable to take orally, then in that case give her IV. 8. Blood glucose monitoring, consider starting an insulin sliding scale in case glucose is raised. 9. Clostridium difficile prophylaxis, Lactinex. The patient is critically ill at this time. Total time spent today providing critical care to this patient today exceeds 40 minutes. <ELECTRONICALLY SIGNED> By: Sean Hurtado MD 11/09/21 1857 2123 2345Aleandro Hurtado MD /nt
== END 2021-11-05 18:17 | disposition home health service (06) | DRG 177 ==
LOC: M.ERS 01:12 → M.TBA-ER 02:42 → M.2W 02:42 → M.TBA-ER 08:37 → M.2W 10-30 20:20
PROVIDERS: Emergency Medicine; Internal Medicine; Internal Medicine Critical Care Medicine; ADMIT Internal Medicine; ATTEND Internal Medicine
DX: J15.6 Pneumonia due to other Gram-negative bacteria (principal); J96.22 Acute and chronic respiratory failure with hypercapnia; J96.21 Acute and chronic respiratory failure with hypoxia; N17.0 Acute kidney failure with tubular necrosis; G93.41 Metabolic encephalopathy; J44.0 Chronic obstructive pulmonary disease with (acute) lower respiratory infection; E87.1 Hypo-osmolality and hyponatremia; J44.1 Chronic obstructive pulmonary disease with (acute) exacerbation; E87.2 Acidosis; J69.0 Pneumonitis due to inhalation of food and vomit; Z20.822 Contact with and (suspected) exposure to COVID-19; Z96.643 Presence of artificial hip joint, bilateral; I10 Essential (primary) hypertension; J45.909 Unspecified asthma, uncomplicated; E83.42 Hypomagnesemia; D72.829 Elevated white blood cell count, unspecified; I48.0 Paroxysmal atrial fibrillation; Z90.710 Acquired absence of both cervix and uterus; Z88.1 Allergy status to other antibiotic agents; Z88.8 Allergy status to other drugs, medicaments and biological substances